=== PATIENT | female | born 1980 | race African-American/Black ===

== ENCOUNTER 2021-09-08 09:35 | Emergency (ER) | payer MEDICAID, OTHER ==
[~2021-09-08] VITALS: Ht 167.6 cm; Wt 86.0 kg
[2021-09-08 09:46] VITALS: BP 109/76
[2021-09-08] MEDS ORDERED: KETOROLAC 60MG/2ML VIAL IM ONE (10:30)
[2021-09-08] MEDS ORDERED: ONDANSETRON 4MG ODT PO ONE (10:30)
== END 2021-09-08 15:45 | disposition left against medical advice (07) ==
LOC: ER 09:35
DX: B34.9 Viral infection, unspecified (principal); F12.10 Cannabis abuse, uncomplicated
CPT/HCPCS: 99281